=== PATIENT | female | born 1955 | race Caucasian/White ===

== ENCOUNTER 2020-09-18 05:21 | Inpatient (IN) | payer OTHER ==
[2020-09-14 11:28] LABS: BASOPHILS % (AUTO) 0.4 % (0.0-2.0); EOSINOPHILS % (AUTO) 0.8 % (1.0-6.0); HEMATOCRIT 40.5 % (36-46); HEMOGLOBIN 13.4 g/dL (12.0-16.0); LYMPHOCYTES # (AUTO) 2.1 K/uL (1.0-4.8); LYMPHOCYTES % (AUTO) 29.5 % (22.0-44.0); MEAN CORPUSCULAR HEMOGLOBIN 30.4 pg (26.0-34.0); MEAN CORPUSCULAR HGB CONC 33.1 G/dL (31.0-37.0); MEAN CORPUSCULAR VOLUME 92 fL (80-100); MONOCYTES # (AUTO) 0.5 K/uL (0.1-1.0); NEUTROPHILS # (AUTO) 4.4 K/uL (1.8-7.7); NEUTROPHILS % (AUTO) 62.3 % (40.0-70.0); PLATELET COUNT (AUTO) 312 K/uL (150-450); RED BLOOD CELL COUNT(AUTO) 4.41 MIL/uL (4.00-5.20); RED CELL DISTRIBUTION WIDTH 13.6 % (11.5-14.5)
[2020-09-14 11:41] LABS: PROTHROMBIN TIME 10.3 SEC (9.4-11.6)
[2020-09-14 11:46] LABS: CALCIUM, TOTAL 9.6 mg/dL (8.8-10.5); POTASSIUM 3.9 mmol/L (3.5-5.1)
[2020-09-14 12:03] LABS: COVID AG,FIA SOURCE NASOPHARYNGEAL
[~2020-09-18] VITALS: Ht 162.6 cm; Wt 73.6 kg
[2020-09-18] MEDS ORDERED: RINGERS SOLUTION,LACTATED 1,000 ML IV ONE ×2 (05:37→06:00)
[2020-09-18] MEDS ORDERED: LISI-657 PO (05:55)
[2020-09-18] MEDS ORDERED: BUPIVACAINE LIPOSOME/PF 1.3%-13.3MG/ML SUSPENSION 20 ML VIAL INJ ONE ×2 (06:30→07:30)
[2020-09-18] MEDS ORDERED: BUPIVACAINE HCL/PF 0.5% 30 ML VIAL ONE (06:36)
[2020-09-18] MEDS ORDERED: GELATIN SPONGE,ABSORBABLE 12-7 MM TP ONE (06:36)
[2020-09-18] MEDS ORDERED: BUPIVACAINE HCL/PF 0.25% 30 ML VIAL ONE (06:36)
[2020-09-18] MEDS ORDERED: BACITRACIN 50,000 UNITS/VIAL ONE (06:36)
[2020-09-18] MEDS ORDERED: GELATIN SPONGE,ABSORBABLE 50 MM TP ONE (06:37)
[2020-09-18] MEDS ORDERED: SUGAMMADEX SODIUM 200 MG/2 ML VIAL IVP ONE ×2 (07:00→08:43)
[2020-09-18] MEDS ORDERED: HYDROmorphone 2 MG/ML SYRINGE IVP PRN (08:15)
[2020-09-18] MEDS ORDERED: ZOLPIDEM TARTRATE 5 MG TABLET PO PRN (08:15)
[2020-09-18] MEDS ORDERED: ONDANSETRON HCL 4 MG/2 ML VIAL IVP PRN (08:15)
[2020-09-18] MEDS ORDERED: CYCLOBENZAPRINE HCL 10 MG TABLET PO PRN (08:15)
[2020-09-18] MEDS ORDERED: HYDROmorphone 2 MG/ML SYRINGE ONE (09:12)
[2020-09-18 10:13] VITALS: BP 134/88
[2020-09-18] MEDS: OxyCODONE HCL 5 MG IR TABLET PO PRN ×3 (10:31→19:41)
[2020-09-18] MEDS: ACETAMINOPHEN 1000 MG/ISO-OSM 100 ML IV SCH ×2 (12:40→18:14)
[2020-09-18] MEDS ORDERED: SODIUM CHLORIDE 0.9% 250 ML IV ONE (13:11)
[2020-09-18 15:40] VITALS: BP 98/58
[2020-09-18] MEDS: CeFAZolin 2 GM/DEXTROSE 50 ML IV SCH ×2 (16:29→23:47)
[2020-09-18] MEDS ORDERED: PNEUMOCOCCAL VACCINE POLYVALENT 0.5 ML VIAL [PPSV23] IM ONE (17:30)
[2020-09-18] MEDS: PANTOPRAZOLE SODIUM 40 MG DR TABLET PO SCH (19:41)
[2020-09-18 20:30] VITALS: BP 103/63
[2020-09-19 00:30] VITALS: BP 100/57
[2020-09-19] MEDS: ACETAMINOPHEN 1000 MG/ISO-OSM 100 ML IV SCH ×2 (00:56→06:07)
[2020-09-19 04:30] VITALS: BP 104/60
[2020-09-19] MEDS: OxyCODONE HCL 5 MG IR TABLET PO PRN (05:10)
[2020-09-19] MEDS ORDERED: MIDAZOLAM HCL 2 MG/2 ML VIAL IVP ONE (05:20)
[2020-09-19] MEDS ORDERED: LIDOCAINE/PF 2% 5 ML VIAL IM ONE (05:20)
[2020-09-19] MEDS ORDERED: 0.9% SODIUM CHLORIDE 10 ML VIAL IVP ONE (05:20)
[2020-09-19] MEDS ORDERED: DEXAMETHASONE SOD PHOS 4 MG/ML VIAL IVP ONE (05:20)
[2020-09-19] MEDS ORDERED: ONDANSETRON HCL 4 MG/2 ML VIAL IVP ONE (05:20)
[2020-09-19] MEDS ORDERED: ROCURONIUM BROMIDE 10 MG/ML 5 ML VIAL IVP ONE (05:20)
[2020-09-19] MEDS ORDERED: FentaNYL CITRATE PF 100 MCG/2 ML VIAL IVP ONE (05:20)
[2020-09-19] MEDS ORDERED: PROPOFOL 1% 20 ML VIAL IVP ONE (05:20)
[2020-09-19 08:26] VITALS: BP 111/69
[2020-09-19] MEDS ORDERED: HYDROCHLOROTHIAZIDE 25 MG TABLET PO SCH (09:00)
[2020-09-19] MEDS ORDERED: LISINOPRIL 10 MG TABLET PO SCH (09:00)
[2020-09-19] MEDS: CeFAZolin 2 GM/DEXTROSE 50 ML IV SCH (10:06)
[2020-09-19] MEDS: PANTOPRAZOLE SODIUM 40 MG DR TABLET PO SCH (10:06)
[2020-09-19] MEDS ORDERED: OXYC-43 PO (10:31)
[2020-09-19 12:18] VITALS: BP 110/63
[2020-09-19] MEDS ORDERED: OxyCODONE HCL/ACETAMINOPHEN 10-325 MG TABLET PO PRN (13:00)
[2020-09-19] MEDS ORDERED: HYDR-1475 PO (14:49)
== END 2020-09-19 15:45 | disposition home health service (06) | DRG 460 ==
LOC: 4E 05:21
PROVIDERS: ADMIT Orthopaedic Surgery; ATTEND Orthopaedic Surgery
PROC: 0SB43ZZ Excision of Lumbosacral Disc, Percutaneous Approach (ICD-10-PCS; 2020-09-18)
PROC: 0SG30A0 Fusion of Lumbosacral Joint with Interbody Fusion Device, Anterior Approach, Anterior Column, Open Approach (ICD-10-PCS; principal; 2020-09-18 07:30)
DX: M48.07 Spinal stenosis, lumbosacral region (principal); I10 Essential (primary) hypertension; M43.17 Spondylolisthesis, lumbosacral region; M51.17 Intervertebral disc disorders with radiculopathy, lumbosacral region; Z20.822 Contact with and (suspected) exposure to COVID-19; Z91.013 Allergy to seafood; Z88.8 Allergy status to other drugs, medicaments and biological substances
CPT/HCPCS: 87081; 87426; 93005; 97116; 97161; 97165; 97530; 97535; A9575; C9290; G0238; G0378; J0131; J0690; J1100; J1170; J2250; J2405; J2704; J3010; J3490; J7050; J7120; 36415-L1; 36415-TC; 71045-TC